=== PATIENT | female | born 1935 | race Caucasian/White ===

== ENCOUNTER 2019-01-03 05:56 | Inpatient (IN) | payer OTHER ==
[~2019-01-03] VITALS: Ht 142.2 cm; Wt 58.2 kg
[~2019-01-03 05:56] MED LIST: ALLOPURINOL 10100 M1 PO; ASPIR 8181 MG PO; COREG25 MG PO; HYDROCHLOROTH12.5 M1 PO; IBUPROFEN 200200 M1 PO; METFORMIN HCL500 MG PO; PROTONIX40 M1 PO; SUPER B-50 COM1 EACH PO; SYNTHROID75 MCG PO
[2019-01-16] MEDS ORDERED: IRON325 PO (14:49)
[2019-01-17 11:31] LABS: URINE BILIRUBIN NEGATIVE (Negative); URINE BLOOD NEGATIVE (Negative); URINE CLARITY CLEAR; URINE COLOR YELLOW; URINE GLUCOSE-RANDOM* NEGATIVE (Negative); URINE KETONES NEGATIVE (Negative); URINE LEUKOCYTES-REFLEX NEGATIVE (Negative); URINE NITRITE-REFLEX NEGATIVE (Negative); URINE PROTEIN (DIPSTICK) NEGATIVE (Negative); URINE SPECIFIC GRAVITY 1.015 (1.005-1.035); URINE UROBILINOGEN 0.2 E.U./dl (0.2-1.0)
[2019-01-17 11:33] LABS: HEMOGLOBIN 9.5 gm/dL (12.0-15.0); MCH 24.5 pg (26.0-34.0); MCHC 31.5 g/dL (28.0-37.0); MCV 77.8 fL (80.0-100.0); PLATELET COUNT 208 thou/uL (150-400); RBC 3.86 mil/uL (4.20-5.00); RDW 27.9 % (10.5-14.5); WBC 5.5 thou/uL (4.0-11.0)
[2019-01-17 11:42] LABS: APTT 25.7 Seconds (24.5-32.8); PROTIME 9.6 Seconds (9.3-11.4)
[2019-01-17 11:47] LABS: ALBUMIN 3.7 g/dL (3.4-5.0); CREATININE 1.1 mg/dL (0.6-1.0); POTASSIUM 4.6 mmol/L (3.5-5.1); TOTAL BILIRUBIN 0.1 mg/dL (<0.1-1.0); TOTAL PROTEIN 7.3 g/dL (6.4-8.2)
[2019-01-17 11:53] LABS: ABSOLUTE NEUTROPHILS 3.4 thou/uL (1.4-8.2); ANISOCYTOSIS 2+; PLATELET ESTIMATE NORMAL
--- NOTE | 2019-01-17 16:31 | EKG ---
[address] [address] ELECTROCARDIOGRAM REPORT Name: PUMA ARIAS Room #: [facility]#: [id number] Admission: Attend Phys: Leroy Sheehan MD Discharge: Date of : 39 Report #: [id number] THIS REPORT FOR: //name// [facility] Test Date: 2019-01-17 Test Time: 11:25:03 Pat Name: PUMA ARIAS Department: Room: Gender: F Business Management Analyst: Kennedy NATHAN : 1935 Requested By: Leroy Sheehan Order Number: [id number] : Gato Maldonado Measurements Intervals [place] Rate: 56 P: 26 RI: 161 QRS: 39 QRSD: 93 T: 70 QT: 408 QTc: 394 Interpretive Statements Sinus rhythm Consider left ventricular hypertrophy Anterior ST elevation, probably due to LVH No previous ECG available for comparison Electronically Signed On 01-17-2019 16:31:31 CDT by Gato Maldonado [email or web address] <ELECTRONICALLY SIGNED> By: Gato Maldonado MD 01/17/19 1631 1125 24 Gato Maldonado MD /AARON
[2019-01-18 00:08] LABS: GLYCOHEMOGLOBIN (HGB A1C) 6.8 % (4.8-5.6)
[2019-01-30 08:07] LABS: HEMATOCRIT 30.9 % (37.0-47.0); HEMOGLOBIN 9.9 gm/dL (12.0-15.0); MCH 25.5 pg (26.0-34.0); MCHC 32.1 g/dL (28.0-37.0); MCV 79.7 fL (80.0-100.0); RBC 3.87 mil/uL (4.20-5.00); RDW 29.4 % (10.5-14.5); WBC 5.2 thou/uL (4.0-11.0)
[2019-01-30 08:11] LABS: POTASSIUM 4.1 mmol/L (3.5-5.1)
[2019-01-30 08:14] VITALS: BP 190/68
[2019-01-30 08:43] LABS: APTT 25.4 Seconds (24.5-32.8); PROTIME 9.7 Seconds (9.3-11.4)
[2019-01-30] MEDS ORDERED: DORYX50 MG PO (08:43)
[2019-01-30] MEDS ORDERED: CRESTOR5 MG PO (08:46)
--- NOTE | 2019-01-30 09:59 | NUR ---
PT CONT TO REST POST UNSUCCESSFUL STANLEY WITH CONSCIOUS SEDATION. FAMILY ATTENTIVE AT BEDSIDE. VSS. PT AWAKE AND ALERT. NO C/O. AWAIT CATH WITH GMM.
[2019-01-30 14:12] LABS: CHOLESTEROL 193 mg/dL (<200); HDL CHOLESTEROL 58 mg/dL (>40); LDL CHOLESTEROL 117 mg/dL (<100); TC:HDL 3.3 Ratio (Not establshd); TRIGLYCERIDE 92 mg/dL (<150); VLDL 18 mg/dL (<40)
[2019-01-30 14:13] LABS: SERUM ASSESSMENT Clear
[2019-01-30 14:37] LABS: TSH 4.457 uIU/mL (0.358-3.740)
--- NOTE | 2019-01-30 16:27 | EKG ---
[address] [email or web address] [address] ELECTROCARDIOGRAM REPORT Name: PUMA ARIAS Room #: 216-P [facility] IN M.R.#: [id number] Admission: 01/30/19 Attend Phys: Rico Escamilla MD, Discharge: Date of : 39 Report #: [id number] THIS REPORT FOR: //name// [facility] Test Date: 2019-01-30 Test Time: 08:09:37 Pat Name: PUMA ARIAS Department: Room: [facility] Gender: F Hospice Home Care Coordinator: Brenna OJEDA : 1935 Requested By: Rico Escamilla Order Number: [id number] MD: Keenan Pierre Measurements Intervals [place] Rate: 63 P: 56 SC: 171 QRS: 49 QRSD: 88 T: 82 QT: 399 QTc: 409 Interpretive Statements Sinus rhythm Consider left ventricular hypertrophy Compared to ECG 01/17/2019 11:25:03 No significant change was found Electronically Signed On 01-30-2019 16:27:30 CDT by Keenan Pierre [email or web address] <ELECTRONICALLY SIGNED> By: Keenan Pierre MD, [facility] 01/30/19 1627 0809 0809 Keenan Pierre MD, [facility] /EPI
[2019-01-30 17:18] VITALS: BP 135/92
--- NOTE | 2019-01-30 17:22 | NUR ---
PATIENT ADMITTED FROM THE TARIFF SUPERVISOR POST PROCEDURE. PT IS A/O TIMES FOUR. PT WITH A RIGHT GROIN ACCESS SITE WITH PRESSURE DRESSING. SIGHT WITH NO SIGNS OF HEMATOMA AND NO BRUISING. PULSES ARE +2 BILAT TO LOWER EXTREMITIES. PT SETTLED IN ROOM AND FAMILY IN ROOM WITH PT.
[2019-01-30 18:09] LABS: % SATURATION 26 % (20-39); IRON 79 ug/dL (50-170); TIBC 303 ug/dL (250-450)
[2019-01-30 19:45] VITALS: BP 107/46
[2019-01-30 23:08] VITALS: BP 107/46
[2019-01-31] VITALS (8 sets, daily range): BP systolic 119–156; BP diastolic 48–82
--- NOTE | 2019-01-31 04:13 | NUR ---
ASSESSMENT CHARTED. VSS. PT DENIES CP, SOA, DIZZINESS. SCOPLAMINE PATCH FOR NAUSEA. SWISH AND SWALLOW LIDOCAINE FOR SORE NECK/THROAT PARTIAL RELIEF. PLAN FOR VALVE REPLACEMENT THIS AM. CONSENTS SIGNED. PRECHECKLIST AND ORDERS FOR PRE SURGERY. X2 CHLORHEXIDINE. R GROIN SITE PREVIOUS CATH CDI NO HEMATOMA NO BRUIT. WILL CONTINUE TO MONITOR AND WITH POC.
[2019-01-31 04:55] LABS: ALBUMIN 3.1 g/dL (3.4-5.0); CREATININE 0.8 mg/dL (0.6-1.0); PHOSPHORUS 3.1 mg/dL (2.5-4.9); POTASSIUM 4.2 mmol/L (3.5-5.1)
[2019-01-31 14:33] LABS: URINE BILIRUBIN NEGATIVE (Negative); URINE BLOOD NEGATIVE (Negative); URINE CLARITY CLEAR; URINE COLOR YELLOW; URINE GLUCOSE-RANDOM* NEGATIVE (Negative); URINE KETONES TRACE (Negative); URINE LEUKOCYTES-REFLEX NEGATIVE (Negative); URINE NITRITE-REFLEX NEGATIVE (Negative); URINE PROTEIN (DIPSTICK) 1+ (Negative); URINE UROBILINOGEN 0.2 E.U./dl (0.2-1.0)
--- NOTE | 2019-01-31 14:39 | NUR ---
met with patient who resides at home with spouse. A few steps to enter home then all needs on one level. She has stair lift in home and uses not DME at home. Possible Peg tube patient may need supplies dtr with no preference.
[2019-01-31 14:45] LABS: SQUAMOUS >10 Many /LPF (0-3)
[2019-01-31 14:46] LABS: BACTERIA-REFLEX 1-9 Few /HPF (None Seen); CASTS None Seen /LPF (None Seen); CRYSTALS None Seen /LPF (None Seen); MUCUS 0-3 Light strn/LPF (None Seen); URINE RBC 0-2 Rare /HPF (0-2); URINE WBC-REFLEX 0-5 Rare /HPF (0-5)
--- NOTE | 2019-01-31 17:32 | CATHLAB ---
[facility] [place] [address] INVASIVE PROCEDURE REPORT Name: HUGOPUMA Villafuerte Room #: 216-P [facility] IN [facility]#: [id number] Admission: 01/30/19 Attend Phys: Rico Escamilla, Discharge: Date of : 39 Date of Service: 01/31/19 1732 Report #: [id number] THIS REPORT FOR: //name// APPROVED REPORT Study performed: 01/30/2019 12:59:14 Patient Details Patient Status: Out-Patient Room #: The patient is a 83 year-old female Event Personnel Rico Escamilla Director Of Sustainability, Hernandez Kirk RN, Tennille Hughes RTR, NATIONAL SERVICE OFFICER Monitor, Jayesh Barker RTR, Scrub Procedures Performed Art Access - R femoral artery* Jeff Access - R femoral vein , Left Heart CatheterizationRight and Left Heart Cath w/or w/o Coronarie [id number] [facility] , Aortogram Abdominal Peripheral Angio 255267 Hemostasis with Manual pressure 01161 Initial Mod Sed Same Phys/QHP Gr5y 335015 18429 Mod Sed Same Phys/QHP Ea 804242 Indication Valvular heart disease Procedure Narrative The Right Groin^ was infiltrated with 1% Lidocaine subcutaneous anesthesia. A PINNACLE 6FR Sheath #[id number] sheath was inserted into the RFA. Coronary angiography was performed using coronary diagnostic catheters. The right coronary system was accessed and visualized with a JR4 catheter. The left coronary system was accessed and visualized with a JL4 catheter. The left ventricle was accessed and visualized with a Pigtail catheter. Left ventricular/Aortic Valve gradient assessed via catheter pullback. Left ventriculogram was performed in 30 degree projection. An aortogram of the abdominal aorta was performed. Hemostasis was obtained with manual pressure following sheath removal without any complications. There was no hematoma. Intraoperative Conscious Sedation Sedation start time: 13:21 Case end Time: 14:12 Fluoro Time: 6.40 minutes Dose: DAP 3770.00 cGycm2 446 mGy [facility] [address] [place] [address] INVASIVE PROCEDURE REPORT Name: PUMA ARIAS Room #: 216-P [facility]#: [id number] Admission: 01/30/19 Attend Phys: Rico Escamilla, Discharge: Date of : 39 Date of Service: 01/31/19 1732 Report #: [id number] Contrast Type and Amount: Visipaque 69 ml Hemodynamics The right atrial mean pressure is 10 mmHg. The right ventricular pressure is 38/9 mmHg. The pulmonary artery pressure is 36/14 mmHg with a mean of 22 mmHg. The mean pulmonary capillary wedge pressure is 14 mmHg. The aortic pressure is 173/67 mmHg with a mean of 105 mmHg. The left ventricular pressure is 198/10 mmHg with a mean of mmHg. The left ventricular end diastolic pressure is 17 mmHg. The cardiac output using thermo method is 4.35 L/min. The cardiac index using thermo method is 3.03 L/min/m2. The mean aortic valve gradient is 29.25 mmHg. The aortic valve area is 0.69 cm2. Conclusion #1 normal left ventricular size and systolic function EF 60%. #2 severe aortic valve stenosis with a gradient on pullback across the aortic valve 35-40 mmHg E valve area 0.69 cm see above hemodynamics #3 abdominal aortogram shows mild calcification and plaquing but no occlusive disease or aneurysm noted in the aortoiliac system. Renal arteries appear to be widely patent. #4 left main free of disease giving rise to LAD and circumflex mild calcification is noted #5 LAD is mildly diffusely diseased and calcified but no occlusive disease is noted. #6 circumflex OM is nondominant with mild irregularity disease in proximal calcification. #7 right coronary with mild proximal disease calcification is noted PDA well preserved. #8 successful right heart catheterization with cardiac output by thermodilution see above hemodynamics. Indications and plan: Patient will need aortic valve replacement. SA VR versus TAVR Hemodynamically stable and pain-free upon transfer back to the CCU. <ELECTRONICALLY SIGNED> By: Rico Escamilla MD, FACC 01/31/19 173 31 31 Rico Escamilla MD, FACC /INF
--- NOTE | 2019-01-31 20:05 | NUR ---
VSS REMAINS NSR. T MAX TEMP TODAY 100.5. PT TOLERATING SIPS H20 WITH MEDICINES, NO CHOKING OBSERVED. PT STILL HAVING LEFT SIDED THROAT PAIN, CAUSING DIFFICULTY,IN SWALLOWING, PAIN EASED NICELY WITH MS AND PT ABLE TO SWALLOW MORE EASILY. LUNGS CLEAR AND DIMINISHED O2 SAT RA IS 91-96%. UP TO BRP WITH ASSIST, STEADY ON FEET. WILL CONTINUE TO MONITER AND CARE FOR PT PER PLAN OF CARE
[2019-02-01 00:48] VITALS: BP 143/61
--- NOTE | 2019-02-01 02:54 | NUR ---
ASSESSMENT CHARTED. VSS. PT STATES THROAT PAIN BETTER TODAY. REFUSED MORPHINE. LIQUID TYLENOL TOLERATED WITH WATER. FAMILY AT BED SIDE. TEMP WNL. SLEEPING WELL THROUGHOUT NIGHT. PLAN FOR PEG PLACEMENT TOODAY. WILL CONTINUE TO MONITOR AND WITH POC.
[2019-02-01 04:32] VITALS: BP 146/64
[2019-02-01 05:07] LABS: HEMATOCRIT 24.9 % (37.0-47.0); MCV 81.3 fL (80.0-100.0); RBC 3.06 mil/uL (4.20-5.00); RDW 29.8 % (10.5-14.5); WBC 4.4 thou/uL (4.0-11.0)
[2019-02-01 05:21] LABS: ALBUMIN 2.6 g/dL (3.4-5.0); CALCIUM 8.7 mg/dL (8.5-10.1); CREATININE 0.9 mg/dL (0.6-1.0); TOTAL BILIRUBIN 0.2 mg/dL (<0.1-1.0); TOTAL PROTEIN 6.1 g/dL (6.4-8.2)
[2019-02-01 07:50] VITALS: BP 144/93
[2019-02-01 11:20] VITALS: BP 174/70
--- NOTE | 2019-02-01 15:02 | NUR ---
sent referral info to [facility] regarding possible coverage with supplies for TF. [facility] reviewing. Patient may benefit from HH at sc. Gave patient and family list of HH agencies for them to review.
--- NOTE | 2019-02-01 15:38 | NUR ---
Tube feeding recommendations: Glucerna 1.2 to start at 20 ml/hr and progress to 40 mL/hr continuous rate. Once tolerance established, can switch to bolus regimen. RD starting calorie count once diet advanced to determine frequency of bolus regimen needed based on oral intake.
--- NOTE | 2019-02-01 16:02 | NUR ---
ASSUMED CARE AT 0700, SHIFT ASSESSMENT DONE, NPO FOR PEG TUBE PLACEMENT. WENT FOR PEG TUBE PLACEMENT THIS AM. CAME BACK AT 0930 WITH PEG TUBE TO MID ABDOMEN. NPO FOR DIET EVAL. WORKED WITH PHYSICAL THERAPHY, WALKED IN THE HALLWAY. FLUIDS DISCONTINUED. SPEECH THERAPHY SAW THE PATIENT, RECOMMENDED FULL LIQUID DIET, ORDER IS IN. CAN TRANSFER TO MED SURG. CUBA SAW TH PT. RECOMMEDED GLUCERNA 1.2 AT 20 MLS/HR WITH Q6H WATER FLUSH OF 150 ML. WILL START TUBE FEDDING AT 1700
--- NOTE | 2019-02-01 19:42 | NUR ---
PT ARRIVED ON UNIT AT 1830 TAKEN TO ROOM 450. PT ARRIVED W/C. ASSIST XS 2 TO BED WAS BROUGHT WITH FULL LQUID DIET DINNER TRAY, PT HAD PEG TUBE PLACED. DRY END OPERATOR TO START GLUCERNA 1.2 AT 20ML / HR WITH H2O WATER BOLUS 150ML EVERY 6 HOURS.CCU GAVE REPORT. HAS RIGHT FA PERIPERIAL IV ACSESS. SALINE LOCKED. REPORT PASSED TO NOC SHIFT.
[2019-02-01 22:44] VITALS: BP 133/47
[2019-02-01 23:55] VITALS: BP 144/54
--- NOTE | 2019-02-02 04:09 | NUR ---
ASSUMED CARE OF PT @1900. ASSESSMENT COMPLETED. PT C/O OF ABDOMINAL PAIN. KUB WAS ORDERED AND COMPLETED; RESULTS PENDING. FEEDING TUBE STARTED AND PT TOLERATING WELL. PT AMBULATES WITH 1 ASSIST AND A WALKER TO THE BR. SON @BEDSIDE. FALL PREC IN PLACE. CALL OLSON WITHIN REACH
[2019-02-02 06:09] LABS: HEMATOCRIT 25.9 % (37.0-47.0); HEMOGLOBIN 8.3 gm/dL (12.0-15.0); MCH 25.9 pg (26.0-34.0); MCV 81.1 fL (80.0-100.0); RBC 3.19 mil/uL (4.20-5.00); RDW 29.3 % (10.5-14.5); WBC 5.9 thou/uL (4.0-11.0)
[2019-02-02 06:23] LABS: ALBUMIN 2.7 g/dL (3.4-5.0); CALCIUM 9.3 mg/dL (8.5-10.1); CREATININE 0.8 mg/dL (0.6-1.0); POTASSIUM 4.2 mmol/L (3.5-5.1)
[2019-02-02 07:05] VITALS: BP 150/96
[2019-02-02] MEDS ORDERED: CEFUROXIME250 MG PO (10:05)
[2019-02-02 11:59] VITALS: BP 150/96
[2019-02-02 12:08] VITALS: BP 150/96
--- NOTE | 2019-02-02 12:29 | NUR ---
DISCHARGE ORDERS COMPLETED PER ATTENDING. PATIENT DISCHARGING TO HOME WITH [facility] TO COVER TUBE FEEDING NEEDS AND [facility] TO COVER HH NEEDS. REFERRAL, DISCHARGE ORDERS AND HOME HEALTH SUMMARY FAXED TO [facility] PER PATIENT REQUEST. CALL PLACED TO [facility]. SPOKE WITH SHIRA, ALL CLINICAL INFORMATION VERIFIED RECEIVED. HOME HEALTH NURSING TO BEGIN WITHIN PATIENTS 48 HOUR WINDOW, PT AND OT TO BEGING WEDNESDAY/WEDNESDAY OF NEXT WEEK.
[2019-02-02 13:09] VITALS: BP 150/96
--- NOTE | 2019-02-02 13:10 | NUR ---
Assumed care of pt at 0700. Pt alert and oriented x4. Denies pain. G tube in place. Tube feeding administering. Checked for residual. 130 cc residual. Pt will discharge home with home health. Pt's family requests pt medical records to be released to Dr. Torres at [facility]. Medical records contacted. Family at beside. Call light within reach.
--- NOTE | 2019-02-08 17:11 | HC ---
[facility] [place] [address] CONSULTATION Name: PUMA ARIAS Room #: 450-P [facility] IN M.R.#: [id number] Admission: 01/30/19 Attend Phys: Rico Escamilla MD, Discharge: 02/02/19 Date of : 39 Report #: [id number] THIS REPORT FOR: //name// CC: Ashish Sheehan HISTORY OF PRESENT ILLNESS: The patient is an 83-year-old female who is admitted today for right and left heart catheterization. This is in anticipation of critical aortic valve stenosis. Having some mild progressive dyspnea, shortness of breath, but no britney chest pain. There has not been any syncope, but a definite decrease in exercise tolerance. This valve is calculating 0.6-0.7 by echo. Cardiac catheterization today reveals normal pulmonary pressures and the valve was crossed calculating to 0.69 cm2. She has been evaluated by 2 different surgeons and is recommended for open aortic valve replacement. She has been compliant with her medications. Metformin has been held for 48 hours. Hypertension has been somewhat labile. No syncope or presyncope. CURRENT MEDICATIONS: Allopurinol, doxycycline, hydrochlorothiazide, Synthroid, metformin, Protonix, rosuvastatin 5, carvedilol 6.25 b.i.d. PAST MEDICAL HISTORY: Positive for this progressive aortic stenosis, diabetes, hypertension, hypercholesterolemia, hypothyroidism, prior cataract and hysterectomy. SOCIAL HISTORY: Minimal alcohol use, no tobacco use and obviously no drug use illicits, moderate caffeine. She is accompanied by her family. ALLERGIES: PENICILLIN. REVIEW OF SYSTEMS: Negative except for stated above. PHYSICAL EXAMINATION: VITAL SIGNS: Blood pressure has been labile 170s-180s systolic over 80s, pulse 70s. HEENT: Eyes reveal xanthelasmas. Pharynx is clear. NECK: Shows slight diminished upstrokes, but they are present. LUNGS: Clear. CARDIOVASCULAR: Regular rate and rhythm, S1, harsh systolic murmur upper right sternal border, diminished second heart sound. ABDOMEN: Soft. No HSM or abdominal bruit. EXTREMITIES: Reveal trace of nonpitting edema. Distal pulses intact. NEUROLOGIC: Nonfocal. SKIN: Warm and dry without xanthoma or ulcer. MUSCULOSKELETAL: Generalized arthritic changes. [address] [address] CONSULTATION Name: PUMA ARIAS Room #: [address] [place] [address] [place] [facility].#: [id number] Admission: 01/30/19 Attend Phys: Rico Escamilla MD, Discharge: 02/02/19 Date of : 39 Report #: [id number] ASSESSMENT: 1. Critical aortic valve stenosis. 2. Mild coronary artery disease (catheterization today. No coronary intervention indicated). 3. Hypertension. 4. Hypercholesterolemia. 5. Diabetes. 6. Degenerative joint disease. RECOMMENDATIONS AND PLAN: We will place in CCU. CV Surgery is aware. We will proceed with an open surgical aortic valve replacement, bioprosthetic. This has been fully discussed previously with the family and Surgery. She is stable upon transfer from the laboratory manager to the CCU for this anticipated surgical procedure. Thank you very much for asking me to assist in the care of this patient. <ELECTRONICALLY SIGNED> By: Rico Escamlila MD, FACC 02/08/19 1711 1351 Rico Escamilla MD, FACC /nt
== END 2019-02-02 13:42 | disposition home health service (06) | DRG 177 ==
LOC: PRE 05:56 → TBA 01-30 06:43 → 2N 01-30 06:43 → PRE 01-30 14:11 → 2N 01-30 15:23 → PRE 01-31 10:13 → ENTRNSPT 02-01 18:00 → 4W 02-01 18:41
PROVIDERS: Hospitalist; Nurse Practitioner; Surgery Vascular Surgery; ADMIT Internal Medicine Cardiovascular Disease
DX: J69.0 Pneumonitis due to inhalation of food and vomit (principal); E43 Unspecified severe protein-calorie malnutrition; I35.0 Nonrheumatic aortic (valve) stenosis; I25.10 Atherosclerotic heart disease of native coronary artery without angina pectoris; R13.10 Dysphagia, unspecified; E11.9 Type 2 diabetes mellitus without complications; I10 Essential (primary) hypertension; E78.00 Pure hypercholesterolemia, unspecified; E03.9 Hypothyroidism, unspecified; M10.9 Gout, unspecified; M13.88 Other specified arthritis, other site; K21.9 Gastro-esophageal reflux disease without esophagitis; D64.9 Anemia, unspecified; E78.5 Hyperlipidemia, unspecified; Z90.710 Acquired absence of both cervix and uterus; Z88.0 Allergy status to penicillin; Z98.42 Cataract extraction status, left eye; Z98.41 Cataract extraction status, right eye; Z68.28 Body mass index [BMI] 28.0-28.9, adult; Z79.899 Other long term (current) drug therapy
CPT/HCPCS: 10047; 10081; 10797